=== PATIENT | male | born 1980 | race Caucasian/White ===

== ENCOUNTER 2023-05-13 06:01 | Emergency (ER) | payer OTHER ==
[~2023-05-13] VITALS: Ht 167.6 cm; Wt 61.2 kg
[~2023-05-13 06:01] MED LIST: K-TAB ER20 MEQ PO; OMEPRAZOLE20 MG PO
--- OUTSIDE RECORDS SUMMARY | 2023-05-13 06:10 | XMS ---
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 Brissa VISIT COUNT (12 MO.) 3 [facility] TOTAL 3 NOTE: Visits indicate total known visits. ED/UCC VISIT TRACKING (12 MO.) 05/13/2023 06:02 [facility] TYPE: Emergency COMPLAINT: - HIGH B/P 04/19/2023 04:23 [facility] TYPE: Emergency COMPLAINT: - HIGH HEART RATE DIAGNOSES: - Gastro-esophageal reflux disease without esophagitis - Hypokalemia - Old myocardial infarction - Other manager tax (current) drug therapy - Palpitations - Presence of coronary angioplasty implant and graft 01/05/2023 21:04 [facility] TYPE: Emergency COMPLAINT: - BURNING IN CHEST DIAGNOSES: - Contact with and (suspected) exposure to COVID-19 - Nicotine dependence, other tobacco product, uncomplicated - Precordial pain INPATIENT VISIT TRACKING (12 MO.) 01/06/2023 05:39 [facility] TYPE: General Medicine DIAGNOSES: - Non-ST elevation (NSTEMI) myocardial infarction [email or web address]
[2023-05-13 06:25] VITALS: BP 145/81
--- NOTE | 2023-05-13 20:26 | EKG ---
[facility] [address] [place] [address] Signed Normal sinus rhythm with sinus arrhythmia Minimal voltage criteria for LVH, may be normal variant ( Sokolow-Huerta ) Borderline ECG When compared with ECG of 19-APR-2023 04:24, No significant change was found Confirmed by Lorri Chambers MD () on 05/13/2023 8:26:24 PM Electronically Signed By: LORRI CHAMBERS MD 05/13/232025 PATIENT NAME: SHARDAKELSEY Electrocardiogram DATE OF : 84 PHYSICIAN: LORRI CHAMBERS MD REPORT #: [id number] REPORT IS CONFIDENTIAL AND NOT TO BE RELEASED WITHOUT AUTHORIZATION
[2023-05-18] MEDS ORDERED: CLOPIDOGREL75 MG PO (14:06)
[2023-05-18] MEDS ORDERED: ATORVASTATIN CA40 MG PO (14:06)
[2023-05-18] MEDS ORDERED: LO-DOSE ASPIRIN81 MG PO (14:06)
[2023-05-18] MEDS ORDERED: DULOXETINE HCL20 MG PO (14:07)
[2023-05-18] MEDS ORDERED: NITROGLYCERIN0.4 MG SL (14:07)
== END 2023-05-13 06:26 | disposition home or self-care (01) ==
LOC: ED 06:01
DX: R03.0 Elevated blood-pressure reading, without diagnosis of hypertension (principal); I25.2 Old myocardial infarction; K21.9 Gastro-esophageal reflux disease without esophagitis; Z95.5 Presence of coronary angioplasty implant and graft; Z79.899 Other long term (current) drug therapy
CPT/HCPCS: 93005; 99283-25

== ENCOUNTER 2023-09-24 05:47 | Emergency (ER) | payer OTHER ==
[~2023-09-24] VITALS: Ht 167.6 cm; Wt 61.2 kg
[~2023-09-24 05:47] MED LIST changes: +ATORVASTATIN CA40 MG PO; +CLOPIDOGREL75 MG PO; +DULOXETINE HCL20 MG PO; +LO-DOSE ASPIRIN81 MG PO; +NITROGLYCERIN0.4 MG SL
[2023-09-24] MEDS ORDERED: HYDROCODON-ACE1 EA11 PO (08:42)
[2023-09-24] MEDS ORDERED: CYCLOBENZAPRINE10 MG PO (08:42)
[2023-09-24] MEDS ORDERED: METHYLPREDNISOLO4 M1 PO (08:42)
[2023-09-24 08:54] VITALS: BP 135/90
== END 2023-09-24 08:55 | disposition home or self-care (01) ==
LOC: ED 05:47
DX: M54.50 Low back pain, unspecified (principal); K21.9 Gastro-esophageal reflux disease without esophagitis; I25.2 Old myocardial infarction; Z79.02 Long term (current) use of antithrombotics/antiplatelets; Z79.82 Long term (current) use of aspirin; Z79.899 Other long term (current) drug therapy
CPT/HCPCS: 96372; 99283; A9270; J1885; J8540